=== PATIENT | female | born 1995 | race African-American/Black ===

== ENCOUNTER 2017-10-07 06:30 | Emergency (ER) | payer OTHER ==
[2017-10-07 06:58] VITALS: BP 123/65; PULSE 77; TEMP 98.4; BMI 24.1
--- NOTE | 2017-10-07 07:35 | PDOC ---
Attending Attestation - Resident Resident Name: Iain Morataya - ED Attending Attestation I have performed the following: I have examined & evaluated the patient, The case was reviewed & discussed with the resident, I agree w/resident's findings & plan, Exceptions are as noted - HPI HPI: 10/07/17 07:34 21y F hx of asthma presents with complaint of vaginal irritation without discharge, no associated pelvic pain, fever/chills, n/v, back pain, abdominal pain, cp, sob. Pt notes her symptoms includes vaginal swelling and irrigtation but denies pain. Pt is currently sexually active in a monogomaous relationship with inconsistent use of barrier contraceptions. LMP last week on exam pt well appearing in no distress abd soft nontender no cva tenderness vag as documented by dr. morataya will screen for STDs, uti will ck HCG, UA - Physicial Exam PE: 10/11/17 07:33 see above - Medical Decision Making UA suggestive of UTI will dc with abx and pmd fu
[2017-10-07 07:58] LABS: URINE APPEARANCE SLCLOUDY; URINE BILIRUBIN NEGATIVE (<2.0 mg/dL); URINE COLOR YELLOW; URINE GLUCOSE (UA) NEGATIVE (NEGATIVE); URINE KETONE NEGATIVE (NEGATIVE); URINE LEUK ESTERASE NEGATIVE (NEGATIVE); URINE NITRITE POSITIVE (NEGATIVE); URINE PROTEIN NEGATIVE (NEGATIVE); URINE UROBILINOGEN NEGATIVE mg/dL (0.2-1.0)
--- NOTE | 2017-10-07 08:00 | PDOC ---
History of Present Illness - General Chief Complaint: Vaginal Sxs Stated Complaint: VAGINAL SWELLING Time Seen by Provider: 10/07/17 07:08 History Source: Patient Exam Limitations: No Limitations - History of Present Illness Initial Comments: 10/07/17 07:54 Patient is a 21F with history of a prior STD infection here today complaining of vaginal irritation that started this morning. Patient denies pelvic pain, vaginal discharge. Patient endorses occasional condom use and is sexually active. LMP 1 week ago. Denies abdominal pain, pain with urination. Denies fevers, chills, nausea, vomiting. Past History - Past Medical History Allergies/Adverse Reactions: Allergies Allergy/AdvReac Type Severity Reaction Status Date / Time egg [Egg] Allergy Verified 10/07/17 06:39 lactose Allergy Nausea Verified 10/07/17 06:39 tree nut Allergy Swelling Verified 10/07/17 06:39 SEAFOOD Allergy Swelling Uncoded 10/07/17 06:39 Home Medications: Ambulatory Orders Albuterol Sulfate Inhaler - [Ventolin HFA Inhaler -] 1 - 2 inh PO QID PRN Cephalexin Monohydrate [Keflex -] 500 mg PO BID #10 capsule 10/07/17 Asthma: Yes Psychiatric Problems: Yes - Reproductive History (#): 1 Para: 1 Cervical CA: No Dysfunctional Uterine Bleeding: No Ectopic : No Endometrial CA: No Endometriosis: No Ovarian CA: No PID: No Polycystic Ovaries: No Therapeutic (s) & number: No Tubal Ligation: No Uterine Fibroids: No Oophorectomy: No - Suicide/Smoking/Psychosocial Hx Smoking Status: No Smoking History: Never smoked Have you smoked in the past 12 months: No Number of Cigarettes Smoked Daily: 0 Information on smoking cessation initiated: No Hx Alcohol Use: No Drug/Substance Use Hx: No Substance Use Type: None Review of Systems - Review of Systems Comments:: 10/07/17 08:00 GENERAL/CONSTITUTIONAL: No fever or chills. No weakness. HEAD, EYES, EARS, NOSE AND THROAT: No change in vision. No sore throat. CARDIOVASCULAR: No chest pain or shortness of breath RESPIRATORY: No cough, wheezing, or hemoptysis. GASTROINTESTINAL: No nausea, vomiting, diarrhea or constipation. GENITOURINARY: No dysuria, frequency, or change in urination. MUSCULOSKELETAL: No joint or muscle swelling or pain. No neck or back pain. SKIN: No rash NEUROLOGIC: No headache, vertigo, loss of consciousness, or change in strength/ sensation. ENDOCRINE: No increased thirst. No abnormal weight change HEMATOLOGIC/LYMPHATIC: No anemia, easy bleeding, or history of blood clots. ALLERGIC/IMMUNOLOGIC: No hives or skin allergy. *Physical Exam - Vital Signs Last Vital Signs Temp Pulse Resp BP Pulse Ox 98.4 F 77 20 123/65 99 10/07/17 06:39 10/07/17 06:39 10/07/17 06:39 10/07/17 06:39 10/07/17 06:39 - Physical Exam Comments: 10/07/17 08:01 GENERAL: Awake, alert, and fully oriented, in no acute distress HEAD: No signs of trauma, normocephalic, atraumatic EYES: PERRLA, EOMI, sclera anicteric, conjunctiva clear ENT: Auricles normal inspection, hearing grossly normal, nares patent, oropharynx clear without exudates. Moist mucosa NECK: Normal ROM, supple, no lymphadenopathy, JVD, or masses LUNGS: No distress, speaks full sentences, clear to auscultation bilaterally HEART: Regular rate and rhythm, normal S1 and S2, no murmurs, rubs or gallops, peripheral pulses normal and equal bilaterally. ABDOMEN: Soft, nontender, normoactive bowel sounds. No guarding, no rebound. No masses EXTREMITIES: Normal inspection, Normal range of motion, no edema. No clubbing or cyanosis. NEUROLOGICAL: Cranial nerves II through XII grossly intact. Normal speech, normal gait, no focal sensorimotor deficits SKIN: Warm, Dry, normal turgor, no rashes or lesions noted. PELVIC: Normal external genitalia. White thick discharge noted. No CMT. Medical Decision Making - Medical Decision Making 10/07/17 08:03 Patient is 21F with history of prior STI here today complaining of vaginal discharge. Physical exam consistent with yeast infection. Patient requesting HIV testing. Will workup with UA, Upreg, Rapid HIV. Will choose antifungal based on status. 10/07/17 08:29 UA nitrite positive, Upreg negative. One dose treatment for yeast, given keflex for UTI. Pending HIV. 10/07/17 09:37 Laboratory Tests 10/07/17 07:52 HIV 1&2 Antibody Screen Negative HIV P24 Antigen Negative HIV negative. Will discharge. *DC/Admit/Observation/Transfer Diagnosis at time of Disposition: UTI (urinary tract infection), Vaginal candidiasis - Discharge Dispostion Disposition: HOME Condition at time of disposition: Good Decision to Admit order: No - Prescriptions Prescriptions: Cephalexin Monohydrate [Keflex -] 500 mg PO BID #10 capsule - Referrals Referrals: [facility] [place] [Provider Group] - Patient Instructions Printed Discharge Instructions: DI for Vaginal Yeast Infection, DI for Urinary Tract Infection (UTI) Additional Instructions: You were see today in the ED and found to have a vaginal yeast infection and UTI. You were given medicine for the yeast infection in the ED. You were prescribed an antibiotic for the UTI. Please take the prescription as prescribed, even if you start to feel better. Please return if you have any new, worsening or concerning symptoms. Please follow up with a primary care provider, a referral for one has been provided for you in your paperwork. - Post Discharge Activity
[2017-10-07 08:10] LABS: EPI CELLS FEW /HPF (FEW); URINE BACTERIA RARE /hpf (NONE SEEN); URINE MUCUS RARE
[2017-10-07 08:11] LABS: HCG,QUALITATIVE URINE NEGATIVE
[2017-10-07] MEDS ORDERED: FLUCONAZOLE 50 MG TABLET PO ONE (08:22)
[2017-10-07] MEDS ORDERED: CEPHALEXIN MONOHYDRATE 500 MG CAPSULE (UD) PO ONE (08:26)
[2017-10-07] MEDS ORDERED: CEPHALEXIN MONOHYDRATE 500 MG CAPSULE (UD) ONE (09:24)
[2017-10-07] MEDS ORDERED: FLUCONAZOLE 100 MG TABLET (UD) ONE (09:25)
== END 2017-10-07 09:49 | disposition home or self-care (01) ==
LOC: JER 06:30
DX: B37.3 Candidiasis of vulva and vagina (principal); N39.0 Urinary tract infection, site not specified; Z86.19 Personal history of other infectious and parasitic diseases; Z11.4 Encounter for screening for human immunodeficiency virus [HIV]; Z91.018 Allergy to other foods
CPT/HCPCS: 36415; 81003; 81015; 84703; 87389; 87491; 87591; 99281-25

== ENCOUNTER 2024-01-28 01:55 | Emergency (ER) | payer OTHER ==
[2024-01-28 02:04] VITALS: BP 117/92; RESP 18; TEMP 98.2; BMI 29.1
[2024-01-28 02:36] VITALS: PULSE 84
[2024-01-28] MEDS ORDERED: IBUPROFEN 400 MG TABLET (FP) PO ONE (03:42)
[2024-01-28] MEDS ORDERED: DIPHTH,PERTUSS(ACELL),TET 0.5 ML DISP.SYRIN IM ONE (03:42)
[2024-01-28] MEDS: DIPHTH,PERTUSS(ACELL),TET 0.5 ML DISP.SYRIN IM ONE (03:48)
[2024-01-28] MEDS: IBUPROFEN 400 MG TABLET (FP) PO ONE (03:48)
[2024-01-28 05:29] LABS: HIV INTERPRETATION NEGATIVE (NEGATIVE)
== END 2024-01-28 05:52 | disposition home or self-care (01) ==
LOC: JER 01:55
PROC: 3E0234Z Introduction of Serum, Toxoid and Vaccine into Muscle, Percutaneous Approach (ICD-10-PCS; principal; 2024-01-28)
DX: N93.9 Abnormal uterine and vaginal bleeding, unspecified (principal); R42 Dizziness and giddiness; R11.2 Nausea with vomiting, unspecified; R10.30 Lower abdominal pain, unspecified; M25.562 Pain in left knee; W19.XXXA Unspecified fall, initial encounter; Z23 Encounter for immunization
CPT/HCPCS: 36415; 84703; 86803; 87389; 90471; 90715; 99284-25

== ENCOUNTER 2024-11-28 15:59 | Emergency (ER) | payer OTHER ==
[2024-11-28 16:05] VITALS: BP 112/63; PULSE 94; RESP 20; TEMP 98.2; BMI 28.5
[2024-11-28 16:59] LABS: HCG,QUALITATIVE URINE Positive
[2024-11-28 17:00] LABS: ABSOLUTE IMMATURE GRANULOCYTES 0.02 x10^3/uL (0.0-0.031); BASOPHILS # 0.06 x10^3/uL (0.01-0.08); EOSINOPHIL % 3.9 % (0.7-5.8); EOSINOPHILS # 0.37 x10^3/uL (0.04-0.36); MCHC 33.5 g/dl (32.2-35.5); MEAN CELL VOLUME 88.0 fl (79.4-94.8); MEAN PLT VOLUME 10.2 fl (9.4-12.3); MONOCYTE # 0.85 x10^3/uL (0.24-0.86); MONOCYTE % 8.9 % (4.7-12.5); RDW 13.0 % (12.1-16.5)
[2024-11-28 17:01] LABS: EPI CELLS >36 /uL (0-25.1); HYALINE CASTS 0 /uL (0-3.1); URINE APPEARANCE TURBID; URINE BACTERIA 384 /uL (0-1359); URINE BILIRUBIN 1+ (NEGATIVE); URINE COLOR RED; URINE GLUCOSE (UA) NEGATIVE (NEGATIVE); URINE KETONE NEGATIVE (NEGATIVE); URINE LEUK ESTERASE 2+ (NEGATIVE); URINE NITRITE NEGATIVE (NEGATIVE); URINE PROTEIN 2+ (NEGATIVE); URINE RBC 15632 /uL (0-23.9); URINE UROBILINOGEN 0.2 mg/dL (0.2-1.0); URINE WBC 80 /uL (0-25.8)
[2024-11-28 18:00] LABS: GLUCOSE,RANDOM 96 mg/dL (74-106)
[2024-11-28 18:01] LABS: TOT PROT 8.6 g/dl (6.4-8.2)
[2024-11-28 18:02] LABS: CO2 19 mmol/L (21-32)
[2024-11-28 18:03] LABS: ALK PHOS 88 U/L (40-150)
[2024-11-28 18:06] LABS: CREATININE 0.66 mg/dL (0.55-1.3); SGOT/AST 59 U/L (5-34); SGPT/ALT 16 U/L (0-55)
[2024-11-28 18:24] LABS: HCV DIAGNOSTIC IN-HOUSE W/RFLX NON-REACTIVE (NONREACTIVE); HIV INTERPRETATION NEGATIVE (NEGATIVE)
[2024-11-28 18:56] LABS: GLUCOSE,RANDOM 99.0 mg/dL (74-106)
[2024-11-28 18:57] LABS: TOT PROT 6.9 g/dl (6.4-8.2)
[2024-11-28 18:58] LABS: CO2 25.0 mmol/L (21-32)
[2024-11-28 18:59] LABS: ALK PHOS 90.0 U/L (40-150)
[2024-11-28 19:02] LABS: CREATININE 0.75 mg/dL (0.55-1.3); SGOT/AST 16.0 U/L (5-34); SGPT/ALT 12.0 U/L (0-55)
== END 2024-11-28 19:54 | disposition home or self-care (01) ==
LOC: JER 15:59
DX: O03.9 Complete or unspecified spontaneous abortion without complication (principal)
CPT/HCPCS: 36415; 76817-TC; 80053; 81003; 84702; 84703; 85025; 86803; 86850; 86900; 86901; 87077; 87086; 87389; 99284-25